=== PATIENT | male | born 1950 | race Caucasian/White ===

== ENCOUNTER 2021-10-15 11:18 | Emergency (ER) | payer OTHER, MEDICARE ==
[~2021-10-15] VITALS: Ht 182.9 cm; Wt 162.4 kg
[2021-10-15 11:56] LABS: URINE BLOOD 3+ (Negative); URINE CLARITY SL CLOUDY; URINE COLOR BROWN; URINE GLUCOSE-RANDOM NEGATIVE (Negative); URINE KETONES NEGATIVE (Negative); URINE LEUKOCYTES-REFLEX NEGATIVE (Negative); URINE NITRITE-REFLEX NEGATIVE (Negative); URINE PROTEIN 1+ (Negative); URINE SPECIFIC GRAVITY 1.025 (1.005-1.030)
[2021-10-15 12:10] LABS: URINE BILIRUBIN 1+ (Negative)
[2021-10-15 12:15] LABS: SQUAMOUS NONE SEEN /LPF (0-3); URINE RBC >20 Many /HPF (0-2)
[2021-10-15 12:16] LABS: BACTERIA-REFLEX None Seen /HPF (None Seen); CASTS None Seen /LPF (None Seen); CRYSTALS None Seen /LPF (None Seen); ICTOTEST (BILI CONFIRMATORY) Negative (Negative); URINE WBC-REFLEX 0-5 Rare /HPF (0-5)
[2021-10-15 12:55] LABS: HEMOGLOBIN 13.8 gm/dL (14.0-18.0); MCHC 33.6 g/dL (28.0-37.0); NUCLEATED RBCS 0 /100WBC
[2021-10-15 12:57] LABS: ABSOLUTE BASOPHILS 0.1 thou/uL (0.0-0.2); ABSOLUTE EOSINOPHILS 0.3 thou/uL (0.0-0.7); ABSOLUTE LYMPHOCYTES 1.4 thou/uL (0.8-5.3); ABSOLUTE MONOCYTES 0.7 thou/uL (0.0-1.2); ABSOLUTE NEUTROPHILS 6.4 thou/uL (1.6-8.1); BASOPHILS 1.1 %; EOSINOPHILS 3.3 %; HEMATOCRIT 41.1 % (42.0-52.0); LYMPHOCYTES 15.9 %; MCH 30.2 pg (26.0-34.0); MCV 89.9 fL (80.0-100.0); MONOCYTES 7.4 %; MPV 8.7 fl. (7.2-11.1); PLATELET COUNT* 161 thou/uL (150-400); POLYS 72.3 %; RBC 4.58 mil/uL (4.50-6.00); RDW-CV 13.6 % (10.5-14.5); WBC 8.9 thou/uL (4.0-11.0)
[2021-10-15 13:38] LABS: CALCIUM 8.7 mg/dL (8.5-10.1); CREATININE 0.8 mg/dL (0.6-1.3); POTASSIUM 4.1 mmol/L (3.5-5.1)
[2021-10-15 13:42] LABS: ALBUMIN 3.5 g/dL (3.4-5.0); TOTAL BILIRUBIN 0.5 mg/dL (<0.1-1.0); TOTAL PROTEIN 6.5 g/dL (6.4-8.2)
[2021-10-15 14:00] VITALS: BP 145/62
--- NOTE | 2021-10-16 13:45 | EKG ---
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 : 1950 Requested By: Ryan Schroeder Order Number: [id number] MD: Nik Stewart Measurements Intervals [place] Rate: 51 P: 39 NE: 214 QRS: 19 QRSD: 134 T: 108 QT: 428 QTc: 395 Interpretive Statements Sinus arrhythmia Borderline prolonged NE interval Nonspecific intraventricular conduction delay Inferior infarct, old possible Nonspecific ST-T abnormality No previous ECG available for comparison Electronically Signed On 10-16-2021 13:44:32 INSURANCE CLERK by Nik Stewart [email or web address] <ELECTRONICALLY SIGNED> By: Nik Stewart MD, [facility] 10/16/21 1344 1244 1244 Nik Stewart MD, [facility] /EPI
== END 2021-10-15 14:00 | disposition home or self-care (01) ==
LOC: M.ERS 11:18
PROVIDERS: Family Medicine; Nurse Practitioner Family
DX: R31.9 Hematuria, unspecified (principal); I10 Essential (primary) hypertension; E11.9 Type 2 diabetes mellitus without complications